=== PATIENT | male | born 1950 | race Caucasian/White ===

== ENCOUNTER 2019-07-10 21:29 | Emergency (ER) | payer OTHER, MEDICARE ==
[2019-07-10 22:25] LABS: ABSOLUTE BASOPHILS # (AUTO) 0.1 10^3/uL (0.0-0.2); ABSOLUTE EOSINOPHILS # (AUTO) 0.2 10^3/uL (0.0-0.6); ABSOLUTE LYMPHOCYTES (AUTO) 2.2 10^3/uL (0.5-4.7); ABSOLUTE MONOCYTES (AUTO) 0.8 10^3/uL (0.1-1.4); ABSOLUTE NEUT (AUTO) 3.4 10^3/uL (1.7-8.2); BASOPHILS % (AUTO) 0.8 % (0-2); EOSINOPHILS % (AUTO) 2.3 % (0-6); HEMATOCRIT 44.8 % (37.9-51.0); HEMOGLOBIN 15.8 g/dL (13.5-17.0); LYMPHOCYTES % (AUTO) 33.3 % (13-45); MEAN CORPUSCULAR HEMOGLOBIN 33.4 pg (27.0-33.4); MEAN CORPUSCULAR HGB CONC 35.2 g/dL (32.0-36.0); MEAN CORPUSCULAR VOLUME 95 fl (80-97); PLATELET COUNT 175 10^3/uL (150-450); RED BLOOD COUNT 4.72 10^6/uL (4.35-5.55); RED CELL DISTRIBUTION WIDTH 15.5 % (11.5-14.0); SEGMENTED NEUTROPHILS % (AUTO) 51.6 % (42-78); TOTAL CELLS COUNTED % (AUTO) 100 %; WHITE BLOOD COUNT 6.6 10^3/uL (4.0-10.5)
--- NOTE | 2019-07-10 22:44 | ER Document Report ---
ED General - General Chief Complaint: Fall Injury Stated Complaint: KNEE PAIN Time Seen by Provider: 07/10/19 22:44 Primary Care Provider: WHITLEY,ABDIRAHMAN [Primary Care Provider] - Follow up as needed Mode of Arrival: Medic Information source: Patient TRAVEL OUTSIDE OF THE [place] IN LAST 30 DAYS: No - HPI Onset: Just prior to arrival Onset/Duration: Sudden Quality of pain: No pain Severity: Mild Pain Level: 0 Associated symptoms: Other - Intoxicated (due to drinking) Exacerbated by: Denies Relieved by: Denies Similar symptoms previously: Yes Recently seen / treated by doctor: No Notes: 69 year old male with a history of Depression, Hypertension, CLOVER, Alcohol Abuse (he drank 10 beers today) brought in by EMS for evaluation after a fall in his garage. The patient apparently was unable to get up on his own so his called EMS. The chief complaint stated for the patient is knee pain but the patient says he feels fine in the ER and is simply intoxicated. The patient is has some abrasions apparently from his fall but denies these causing him any pain. The was spoken to by nursing staff and the says the patient has been very depressed about the suicide of his granddaughter. The patient apparently had been sober for months but he has been drinking for 3 weeks [facility] now. - Related Data Allergies/Adverse Reactions: No Known Allergies Allergy (Unverified 07/10/19 21:38) Home Medications: non compiant depression meds Past Medical History - General Information source: Patient - Social History Smoking Status: Never Smoker Frequency of alcohol use: Heavy Drug Abuse: None Lives with: Spouse/Significant other Family History: Reviewed & Not Pertinent Patient has suicidal ideation: No Patient has homicidal ideation: No Review of Systems - Review of Systems Constitutional: Other - alcohol intoxication EENT: No symptoms reported Cardiovascular: No symptoms reported Respiratory: No symptoms reported Gastrointestinal: No symptoms reported Genitourinary: No symptoms reported Male Genitourinary: No symptoms reported Musculoskeletal: No symptoms reported Skin: Other - abrasions to arms and legs from fall Hematologic/Lymphatic: No symptoms reported Neurological/Psychological: No symptoms reported -: Yes All other systems reviewed and negative Physical Exam - Vital signs Vitals: Temp 200 F H 07/10/19 21:29 - Notes Notes: GENERAL: Intoxicated, slurring speech, well-nourished and in no acute distress. HEAD: Atraumatic, normocephalic. EYES: Pupils equal round and reactive to light, extraocular movements intact, sclera anicteric, conjunctiva are normal. ENT: Extrernal ears normal, nares patent, oropharynx clear without exudates. Moist mucous membranes. NECK: Normal range of motion, supple without lymphadenopathy or JVD. LUNGS: Breath sounds clear to auscultation bilaterally and equal. No wheezes rales or rhonchi. HEART: Regular rate and rhythm without murmurs, rubs or gallops. ABDOMEN: Soft, nontender, normoactive bowel sounds. No guarding, no rebound. No masses appreciated. EXTREMITIES: Normal range of motion, no pitting or edema. No clubbing or cyano sis. NEUROLOGICAL: Cranial nerves II through XII grossly intact. Normal speech, normal gait. PSYCH: Normal mood, normal affect. SKIN: Abrasions to arms and legs, warm, dry, normal turgor, no rashes or lesions noted. Course - Re-evaluation Re-evalutation: 07/10/19 22:53 The patient was brought to the ER by EMS after he fell in his garage while intoxicated and couldnt get up on his own. The patient had no real complaints to me while in the ER. The plan will be for the patient to sober up and to reassess to ensure no serious injuries and to ensure patient is not suicidal. 07/11/19 05:43 The patient is now clinically sober. he was able to ambulate and he denies SI at this time. Patient told to follow up with a PCP and outpatient mental health. - Vital Signs Vital signs: Temp Pulse Resp BP Pulse Ox 97.9 F 71 17 137/81 H 94 07/10/19 21:43 07/10/19 21:43 07/11/19 05:01 07/11/19 05:01 07/11/19 05:01 - Laboratory Result Diagrams: 07/10/19 22:00 07/10/19 22:00 Laboratory results interpreted by me: 07/10/19 22:00 RDW 15.5 H - EKG Interpretation by Me EKG shows normal: Sinus rhythm, Whitney, Intervals, QRS Complexes, ST-T Waves Rate: Normal Rhythm: NSR Discharge - Discharge Clinical Impression: Alcohol abuse Fall Qualifiers: Encounter type: initial encounter Qualified Code(s): W19.XXXA - Unspecified fall, initial encounter Condition: Stable Disposition: HOME, SELF-CARE Instructions: Chronic Alcoholism ([facility]), Acute Alcohol Intoxication ([facility]) Additional Instructions: Reassess your drinking habits. Follow up with outpatient mental health and primary care. [facility]errals: [facility] [Primary [facility]] - Follow up as needed YULIYA WEINBERG MD [COMMUNITY BASED STAFF] - Follow up as needed DANA SUAZO MD [ACTIVE STAFF] - Follow up as needed
[2019-07-10 22:45] LABS: ALBUMIN 4.3 g/dL (3.5-5.0); ALCOHOL 270 mg/dL (NONE DETECTED); ALKALINE PHOSPHATASE 67 U/L (38-126); ANION GAP 12 (5-19); ASPARTATE AMINO TRANSFERASE 31 U/L (17-59); BILIRUBIN,TOTAL 0.6 mg/dL (0.2-1.3); BLOOD UREA NITROGEN 12 mg/dL (7-20); CALCIUM 8.9 mg/dL (8.4-10.2); CARBON DIOXIDE 24 mmol/L (22-30); CHLORIDE 101 mmol/L (98-107); GLUCOSE 103 mg/dL (75-110); POTASSIUM 4.3 mmol/L (3.6-5.0); TOTAL PROTEIN 7.5 g/dL (6.3-8.2)
[2019-07-10 23:05] LABS: APPEARANCE,URINE CLEAR; BILIRUBIN,URINE NEGATIVE (NEGATIVE); COLOR,URINE STRAW; GLUCOSE, URINE NEGATIVE (NEGATIVE); KETONES,URINE NEGATIVE (NEGATIVE); LEUKOCYTE ESTERASE,URINE NEGATIVE (NEGATIVE); NITRITE,URINE NEGATIVE (NEGATIVE); PROTEIN,URINE NEGATIVE (NEGATIVE); URINE SPECIFIC GRAVITY 1.002; UROBILINOGEN,URINE NEGATIVE mg/dL (<2.0)
[2019-07-10 23:20] LABS: URINE AMPHETAMINES SCREEN NEGATIVE; URINE BARBITURATES SCREEN NEGATIVE; URINE BENZODIAZEPINES SCREEN NEGATIVE; URINE COCAINE SCREEN NEGATIVE; URINE MARIJUANA (THC) SCREEN NEGATIVE; URINE METHADONE SCREEN NEGATIVE; URINE PHENCYCLIDINE SCREEN NEGATIVE
[2019-07-11 06:08] VITALS: BP 133/88
--- NOTE | 2019-07-11 15:26 | EKG REPORT ---
SEVERITY:- BORDERLINE ECG - SINUS RHYTHM BORDERLINE PROLONGED QT INTERVAL : Confirmed by: Shea Murillo MD 11-Jul-2019 15:25:31
== END 2019-07-11 06:08 | disposition home or self-care (01) ==
LOC: ER 21:29
DX: S40.812A Abrasion of left upper arm, initial encounter (principal); S40.811A Abrasion of right upper arm, initial encounter; S80.812A Abrasion, left lower leg, initial encounter; S80.811A Abrasion, right lower leg, initial encounter; W19.XXXA Unspecified fall, initial encounter; F10.129 Alcohol abuse with intoxication, unspecified; Z63.4 Disappearance and death of family member; I10 Essential (primary) hypertension; Z91.14 Patient's other noncompliance with medication regimen
CPT/HCPCS: 36415; 80053; 80307; 81001; 82550; 85025; 93005; 93010; 99284